=== PATIENT | female | born 1955 | race Caucasian/White ===

== ENCOUNTER 2018-02-27 08:32 | Outpatient (CLI) | payer OTHER | END 2018-02-27 08:33 | disposition home or self-care (01) | LOC: LAB.F 08:32 | PROVIDERS: ATTEND Optometrist | DX: R51 Headache (principal) | CPT/HCPCS: 36415; 85651; 86140 ==

== ENCOUNTER 2019-09-03 16:54 | Inpatient (IN) | payer MEDICARE, OTHER ==
--- NOTE | 2019-09-03 17:25 | ED Physician Documentation ---
PD HPI ABD PAIN - Stated complaint Stated Complaint: RT SIDE PX - Chief complaint Chief Complaint: Abd Pain - History obtained from History obtained from: Patient - History of Present Illness Timing - onset: Today (The patient states she awoke this morning with right lower quadrant abdominal pain that is crampy and localized and has continued through the day. Shortly after awakening she did have 3 or 4 episodes of soft stool bowel movement but not diarrhea per se and subsequently no further bowel movements through the day. She denied any dysuria. The abdominal pain has remained localized in the right lower quadrant and has continued and worsened through the afternoon. She is feeling nauseated and without any appetite and has not eaten through the day. She has not had any prior similar episodes. She felt chilled this afternoon but no noted fevers per se.) Timing - duration: Days (1) Timing - details: Gradual onset, Still present Quality: Cramping, Aching, Pain Location: RLQ Radiation: No: Chest, Lower back, Right flank Improved by: Laying still. No: Position Worsened by: Moving, Palpation, Other (She did have considerable discomfort with any bumps or jostles on the ride here.) Associated symptoms: Nausea, Loss of appetite. No: Fever, Vomiting, Diarrhea (but 3-4 small loose stools this morning), Dysuria, Hematuria, Chest pain Similar symptoms before: Has not had sx before Recently seen: Not recently seen Review of Systems Constitutional: reports: Chills. denies: Fever, Myalgias Nose: denies: Rhinorrhea / runny nose, Congestion Throat: denies: Sore throat Respiratory: denies: Cough GI: reports: Abdominal Pain, Nausea. 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 Living Arrangement: reports: At home - Social History Does the pt smoke?: No Does the pt drink ETOH?: No Does the pt have substance abuse?: No PD ED PE NORMAL - Vitals Vital signs reviewed: Yes - General General: Alert and oriented X 3, Well developed/nourished, Other (She appears quite uncomfortable and is guardedly holding still due to pain in the right abdomen.) - HEENT HEENT: Pharynx benign. No: Moist mucous membranes - Neck Neck: Supple, no meningeal sign, No adenopathy - Cardiac Cardiac: RRR, No murmur - Respiratory Respiratory: Clear bilaterally - Abdomen Abdomen: Soft, Non distended, No organomegaly, Other (She has marked tenderness localized to the right lower quadrant at McBurney's point with localized guarding and localized percussion tenderness. She has referred tenderness from palpation in the mid abdomen and left abdomen referring to the right lower quadrant. She has rebound tenderness. She does have pain with heel strike and leg lift all to the right lower quadrant. There is no CVA tenderness. There is no hernias nor masses noted in the inguinal area.). No: Normal bowel sounds (diminished) - Female Female : Deferred - Rectal Rectal: Deferred - Back Back: No CVA TTP - Derm Derm: Normal color, No rash - Extremities Extremities: No deformity, No tenderness to palpate, Normal ROM s pain, No edema, No calf tenderness / cord - Neuro Neuro: Alert and oriented X 3, No motor deficit, Normal speech Results - Vitals Vitals: Vital Signs - 24 hr 09/03/19 09/03/19 16:59 19:00 Temperature 37.1 C Heart Rate 70 81 Respiratory 16 14 Rate Blood Pressure 125/72 119/72 O2 Saturation 99 100 Oxygen O2 Source Nasal cannula - Labs Labs: Laboratory Tests 09/03/19 09/03/19 09/03/19 17:15 17:20 17:20 WBC 4.9 RBC 4.97 Hgb 15.5 Hct 45.3 MCV 91.1 MCH 31.2 H MCHC 34.2 RDW 13.4 Plt Count 181 MPV 10.7 Neut # (Auto) 2.0 Lymph # (Auto) 2.3 [place] # (Auto) 0.4 Eos # (Auto) 0.1 Baso # (Auto) 0.0 Absolute Nucleated RBC 0.00 Nucleated RBC % 0.0 Sodium 138 Potassium 3.3 L Chloride 101 Carbon Dioxide 29 Anion Gap 8.0 BUN 20 Creatinine 0.8 Estimated GFR (MDRD) 72 L Glucose 97 Calcium 9.3 Total Bilirubin 1.0 AST 22 ALT 18 Alkaline Phosphatase 61 Total Protein 7.4 Albumin 4.6 Globulin 2.8 Albumin/Globulin Ratio 1.6 Lipase 39 Urine Color YELLOW Urine Clarity CLEAR Urine pH 6.0 Ur Specific [place] 1.015 Urine Protein NEGATIVE Urine Glucose (UA) NEGATIVE Urine Ketones TRACE Urine Occult Blood NEGATIVE Urine Nitrite NEGATIVE Urine Bilirubin NEGATIVE Urine Urobilinogen 0.2 (NORMAL) Ur Leukocyte Esterase NEGATIVE Ur Microscopic Review NOT INDICATED Urine Culture Comments NOT INDICATED - Rads (name of study) abd CT Radiology: Prelim report reviewed (Retrocecal appendix appears normal. Diverticuli without any diverticulitis. Right ovary is not visible and status post hysterectomy. No hydronephrosis nor ureteral blockages identified. No acute explanation for her pain.), See rad report PD MEDICAL DECISION MAKING - ED course Complexity details: re-evaluated patient (Reevaluation is still quite tender in the right lower quadrant with peritoneal signs on exam. She did require further dosing of medication for the pain and nausea. At this point her exam is very suggestive of significant process and I feel she needs further evaluation and treatment for this.), considered differential (Her progression of symptoms and exam are most consistent with appendicitis. Alternatives would be a right sided diverticulitis or a ovarian process. Other alternatives would be your urinary tract infection or stone. However given her peritoneal findings of percussion and rebound and referred tenderness, most likely to think of a localized intra- abdominal infection or inflammatory process. CT scan is indicated as is other lab tests. We will give her IV fluids and medications. She is quite painful in the process and very tender on exam so we will give her some pain medications as well as antiemetics and fluids.), d/w patient, d/w product support consultant (I talked with Dr. Bhardwaj who is on-call for surgery who felt that the patient would not be appropriate on her service given no clear surgical process. I will talk with the hospitalist regarding further evaluation of the unknown cause of pain with intractable tenderness and pain.) Departure - Departure Disposition: ED Place in Observation Clinical Impression: Acute abdominal pain in right lower quadrant, Intractable abdominal pain Condition: Stable Record reviewed to determine appropriate education?: Yes
[2019-09-03 17:30] LABS: BASOPHILS % (AUTO) 0.6 %; EOSINOPHILS # (AUTO) 0.1 10^3/uL (0.0-0.7); EOSINOPHILS % (AUTO) 2.2 %; HGB - HEMOGLOBIN 15.5 g/dL (12.0-16.0); LYMPHOCYTES # (AUTO) 2.3 10^3/uL (1.5-3.5); LYMPHOCYTES % (AUTO) 47.8 %; MEAN CORPUSCULAR HEMOGLOBIN 31.2 pg (27.0-31.0); MEAN CORPUSCULAR HGB CONC 34.2 g/dL (32.0-36.0); MEAN CORPUSCULAR VOLUME 91.1 fL (81.0-99.0); MEAN PLATELET VOLUME 10.7 fL (7.9-10.8); MONOCYTES # (AUTO) 0.4 10^3/uL (0.0-1.0); MONOCYTES % (AUTO) 7.6 %; NEUTROPHILS % (AUTO) 41.6 %; PLT - PLATELET COUNT 181 10^3/uL (130-450); RED BLOOD COUNT 4.97 10^6/uL (4.20-5.40); RED CELL DISTRIBUTION WIDTH 13.4 % (12.0-15.0); WHITE BLOOD COUNT 4.9 x10^3/uL (4.8-10.8)
[2019-09-03 17:32] LABS: BILIRUBIN,URINE NEGATIVE (NEGATIVE); CLARITY,URINE CLEAR (CLEAR); GLUCOSE, URINE (UA) NEGATIVE (NEGATIVE); KETONES,URINE (UA) TRACE mg/dL (NEGATIVE); LEUKOCYTE ESTERASE, URINE NEGATIVE (NEGATIVE); NITRITE,URINE NEGATIVE (NEGATIVE); OCCULT BLOOD,URINE NEGATIVE (NEGATIVE); PROTEIN,URINE NEGATIVE (NEGATIVE); UROBILINOGEN,URINE 0.2 (NORMAL) E.U./dL (NORMAL)
[2019-09-03] MEDS ORDERED: diphenhydrAMINE INJ 50 MG/ML VIAL IVP STA (17:41)
[2019-09-03] MEDS ORDERED: SODIUM CHLORIDE 0.9% 1,000 ML IV ONE ×2 (17:41→19:19)
[2019-09-03] MEDS ORDERED: ONDANSETRON 4 MG/2 ML VIAL IVP STA (17:41)
[2019-09-03 17:42] LABS: ALBUMIN 4.6 g/dL (3.2-5.5); ALBUMIN/GLOBULIN RATIO 1.6 (1.0-2.2); CALCIUM 9.3 mg/dL (8.5-10.3); CREATININE 0.8 mg/dL (0.4-1.0); TOTAL PROTEIN 7.4 g/dL (6.7-8.2)
[2019-09-03] MEDS ORDERED: HYDROmorphone 1 MG/ML CARPUJECT IVP STA ×2 (17:42→19:18)
[2019-09-03] MEDS ORDERED: IOVERSOL 320 100 ML VIAL IVP ONE ×2 (17:51→18:13)
--- NOTE | 2019-09-03 18:40 | CT Report ---
Reason: RLQ pain/tender since AM Procedure Date: 09/03/2019 Accession Number: [id number] / [id number] Procedure: CT - Abdomen/Pelvis W CPT Code: Final Report FULL RESULT: EXAM: CT ABDOMEN AND PELVIS EXAM DATE: 09/03/2019 06:12 PM. CLINICAL HISTORY: RLQ pain/tender since AM. COMPARISONS: None. TECHNIQUE: Routine helical CT imaging was performed through the abdomen and pelvis. IV contrast: 100 cc OPTIRAY 320. Enteric contrast: No. Reconstructions: Coronal and sagittal. In accordance with CT protocol optimization, one or more of the following dose reduction techniques were utilized for this exam: automated exposure control, adjustment of mA and/or KV based on patient size, or use of iterative reconstructive technique. FINDINGS: Lung Bases: Mild wispy atelectasis or scarring inferiorly in the right middle lobe. Liver: Normal. No masses. Gallbladder/Bile Ducts: Unremarkable. Spleen: Normal. Pancreas: Normal. Adrenal Glands: Normal. Kidneys: There are a few parapelvic cysts in the mid to lower left kidney. No convincing hydronephrosis. Otherwise unremarkable. Peritoneal Cavity/Bowel: Unopacified stomach and small bowel are nondistended. The retrocecal appendix is normal. There is a small amount of formed stool in the colon. There is minimal descending and sigmoid colon diverticulosis. There is no focal pericolonic fat stranding. There is no lymphadenopathy, ascites, or pneumoperitoneum. Pelvic Organs: Small volume bladder. Uterus surgically absent. Left ovary is unremarkable. Right ovary is either small or absent. Vasculature: No aneurysms or other significant abnormality. Bones: No significant abnormality. Other: Body wall is unremarkable. IMPRESSION: Normal abdomen and pelvis CT. No findings identified to explain right lower quadrant pain. RADIA
[2019-09-03] MEDS ORDERED: ONDANSETRON 4 MG/2 ML VIAL IVP PRN (19:28)
--- NOTE | 2019-09-03 19:34 | HISTORY & PHYSICAL EXAMINATION ---
Chief Complaint - Chief Complaint Chief Complaint: right lower quadrant abdominal pain History of Present Illness - Admitted From Admitted From:: [facility] ED - History Obtained From Records Reviewed: yes History obtained from: patient Exam Limitations: none - History of Present Illness HPI Comment/Other: Patient is a 63-year-old female who presented to the ED with right lower quadrant abdominal pain which started this morning. This was shortly after having a small bowl of cereal. She immediately had an urgency to empty her bowels and had 4 loose bowel movements shortly afterwards. She has been experiencing heartburn which started 6 days ago following 3 days of eating lasagna which contained a significant amount of cheese. 3 days ago she did not feel well and laid around most of the following day. Yesterday she had a bowl of Robe gray soup and experienced some abdominal pain afterwards. Throughout the episode she has not vomited but she has been nauseous. She denies chest pain or dyspnea. She denied fever but has been having chills. She reports waking up drenched in sweat on Monday night which was 3 days ago. Work-up in the ED included a CT of the abdomen pelvis, CBC and BMP which were largely unremarkable except for a potassium of 3.3. However the patient's abdominal pain persist despite 2 doses of IV Dilaudid. She is still very tender in the right lower quadrant and the thought of food makes her significantly nauseous. 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 Social History Notes: She does not use tobacco products. She drinks a glass of wine daily. She denies illicit drug use. - POLST Patient has POLST: No POLST Status: Full Code Meds/Allgy - Allergies Allergies/Adverse Reactions: Allergies Allergy/AdvReac Type Severity Reaction Status Date / Time morphine Allergy Itching Verified 09/03/19 16:59 Review of Systems - Constitutional Constitutional: reports: Chills. denies: Fatigue, Fever - Eyes Eyes: denies: Pain, Vision loss, Dipolpia - Ears, Nose & Throat Ears, Nose & Throat: denies: Vertigo, Sore throat - Cardiovascular Cariovascular: denies: Irregular heart rate, Palpitations, Chest pain, Edema, Lightheadedness, Syncope, Exertional dyspnea - Respiratory Respiratory: denies: Cough, Wheezing, SOB at rest, SOB with exertion - Gastrointestinal Gastrointestinal: reports: Abdominal pain, Diarrhea (loose stools), Nausea, Re flux/heartburn. denies: Black stools, Vomiting, Coffee grounds emesis - Genitourinary Genitourinary: denies: Dysuria, Frequency, Urgency, Hematuria, Incontinence - Musculoskeletal Musculoskeletal: denies: Muscle pain, Back pain, Muscle aches - Integumentary Integumentary: denies: Rash, Pruritis - Neurological Neurological: denies: General weakness, Focal weakness, Headache, Dizziness - Psychiatric Psychiatric: denies: Depression, Anxiety - Endocrine Endocrine: denies: Polyuria, Polydypsia - Hematologic/Lymphatic Hematologic/Lymphatic: denies: Anemia, Bruising, Petechiae Prior Level of Functionality: Patient is independent of activities of daily living Exam - Vital Signs Vital Signs: Vital Signs x48h Temp Pulse Resp BP Pulse Ox 09/03/19 19:00 81 14 119/72 100 09/03/19 16:59 37.1 C 70 16 125/72 99 - Physical Exam General Appearance: positive: Alert, Moderate distress, Severe distress Eyes Bilateral: positive: PERRL, EOMI ENT: positive: Dry mucous membranes Neck: positive: No JVD, Trachea midline Respiratory: positive: Chest non-tender, No respiratory distress, Breath sounds nml. negative: Wheezes, Rales, Rhonchi Cardiovascular: positive: Regular rate & rhythm, No murmur Abdomen: positive: Nml bowel sounds, Tenderness (right lower quadrant), Guarding, Rebound Back: positive: Nml inspection Skin: positive: Color nml, No rash, Warm, Dry Extremities: positive: Non-tender, Full ROM, Nml appearance, No pedal edema Neurologic/Psychiatric: positive: Oriented x3, CN's nml (2-12), Motor nml, Sensation nml, Mood/affect nml Conclusion/Plan - Problem List (1) Intractable abdominal pain Conclusion/Plan: Etiology undetermined CT scan of the abdomen pelvis was unremarkable. IV hydration with normal saline at 125 mils per hour. Pain management with Dilaudid 0.5 mg IV every 2 hours as needed. [place] 5/325. 1 tablet every 4 hours as needed If patient's pain worsens or does not improve we will consult general surgery (2) Hypokalemia Conclusion/Plan: Will replace and recheck. We will also check magnesium level - Lab Results Fish Bones: 09/03/19 17:20 09/03/19 17:20 Core Measures - Anticipated LOS I expect patient to be DC'd or transferred within 96 hours.: Yes - DVT/VTE - Prophylaxis VTE/DVT Device ordered at admit?: Yes VTE/DVT Prophylaxis med ordered at admit?: Yes
[2019-09-03] MEDS: HYDROmorphone 0.5 MG/0.5 ML SYRINGE IVP PRN (21:54)
[2019-09-03] MEDS: POTASSIUM CHLOR 10 MEQ/100 ML 10 MEQ/100 ML BAG IV SCH (23:03)
[2019-09-04] MEDS: POTASSIUM CHLOR 10 MEQ/100 ML 10 MEQ/100 ML BAG IV SCH ×3 (00:07→02:19)
[2019-09-04] MEDS: SODIUM CHLORIDE 0.9% 1,000 ML IV SCH ×4 (00:07→21:35)
[2019-09-04] MEDS: SODIUM CHLORIDE FLUSH 0.9% 10 ML SYRINGE IVP SCH ×4 (02:28→23:57)
[2019-09-04] MEDS: HYDROmorphone 0.5 MG/0.5 ML SYRINGE IVP PRN (04:14)
[2019-09-04 05:25] LABS: BASOPHILS % (AUTO) 0.6 %; EOSINOPHILS # (AUTO) 0.1 10^3/uL (0.0-0.7); EOSINOPHILS % (AUTO) 1.2 %; HGB - HEMOGLOBIN 13.1 g/dL (12.0-16.0); LYMPHOCYTES # (AUTO) 1.8 10^3/uL (1.5-3.5); LYMPHOCYTES % (AUTO) 35.7 %; MEAN CORPUSCULAR HEMOGLOBIN 31.4 pg (27.0-31.0); MEAN CORPUSCULAR HGB CONC 33.5 g/dL (32.0-36.0); MEAN CORPUSCULAR VOLUME 93.8 fL (81.0-99.0); MEAN PLATELET VOLUME 11.1 fL (7.9-10.8); MONOCYTES # (AUTO) 0.4 10^3/uL (0.0-1.0); MONOCYTES % (AUTO) 7.8 %; NEUTROPHILS # (AUTO) 2.7 10^3/uL (1.5-6.6); NEUTROPHILS % (AUTO) 54.5 %; PLT - PLATELET COUNT 156 10^3/uL (130-450); RED BLOOD COUNT 4.17 10^6/uL (4.20-5.40); RED CELL DISTRIBUTION WIDTH 13.8 % (12.0-15.0)
[2019-09-04 05:33] LABS: CALCIUM 8.1 mg/dL (8.5-10.3); CREATININE 0.8 mg/dL (0.4-1.0); MAGNESIUM 2.2 mg/dL (1.7-2.8)
[2019-09-04] MEDS: SODIUM CHLORIDE FLUSH 0.9% 10 ML SYRINGE IVP PRN (06:39)
[2019-09-04] MEDS: PANTOPRAZOLE 40 MG VIAL IVP SCH (06:39)
[2019-09-04] MEDS ORDERED: SODIUM CHLORIDE 0.9% 500 ML IV ONE ×2 (07:26→12:01)
[2019-09-04] MEDS ORDERED: GI COCKTAIL 120 ML BOTTLE PO PRN (07:54)
[2019-09-04] MEDS ORDERED: ACETAMINOPHEN 325 MG TABLET PO PRN (08:50)
[2019-09-04] MEDS: HYDROcod/ACETAM 5/325 MG TABLET PO PRN ×2 (09:05→16:57)
[2019-09-04] MEDS: ENOXAPARIN 40 MG/0.4 ML SYRINGE SUBQ SCH (09:05)
[2019-09-04] MEDS ORDERED: SODIUM CHLORIDE 0.9% 1,000 ML IV SCH (09:16)
--- NOTE | 2019-09-04 10:16 | PHARMACY PROGRESS NOTE ---
- Best Possible Medication History Admit Date and Time: 09/03/191949 Processed by: Pharmacy Medication History completed: Yes Patient Interview: Pt interview ONLY source As the person ultimately responsible for medication therapy, providers are able to order a medication from an existing home medication list in [facility] via the "Reconcile Routine" prior to Confirmation of that medication by patient support partner. Such practice is discouraged except when the physician, in their clinical judgment, deems that a medical need exists for a medication without regard to previous use.
--- NOTE | 2019-09-04 12:08 | PROVIDER PROGRESS NOTE ---
Subjective - Prog Note Date Prog Note Date: 09/04/19 - Subjective Pt reports feeling: No change Subjective: pt is alert and oriented today. pt still report right upper quadrant pain with positive on vidal's sign by examination although CT of abdomen was u nremarkable. pt also complain of headache as her chronic migraines. pt denies fever, chill, chest pain, shortness of breath. pt was also found to have hypotension in the morning. Current Medications - Current Medications Current Medications: Active Medications Acetaminophen (Tylenol) 650 mg PO Q4HR PRN PRN Reason: Pain or Fever > 38C (100.4F) Hydrocodone Bitart/Acetaminophen ([place] 5/325) 1 tab PO Q4HR PRN PRN Reason: Pain 5 to 7 Last Admin: 09/04/19 09:05 Dose: 1 tab Enoxaparin Sodium (Lovenox) 40 mg SUBQ DAILY [facility] Last Admin: 09/04/19 09:05 Dose: 40 mg Hydromorphone HCl (Dilaudid Inj Syringe) 0.5 mg IVP Q2H PRN PRN Reason: Pain 8 to 10 Last Admin: 09/04/19 04:14 Dose: 0.5 mg Sodium Chloride (Normal Saline 0.9%) 1,000 mls @ 100 mls/hr IV .Q10H [facility] Last Admin: 09/04/19 11:47 Dose: 100 mls/hr Sodium Chloride (Normal Saline 0.9%) 500 mls @ 999 mls/hr IV ONCE ONE Stop: 09/04/19 12:31 Midodrine () 2.5 mg PO TIDWM [facility] Multi-Ingredient Mouthwash/Gargle () 30 ml PO Q4H PRN PRN Reason: Abdominal Pain Ondansetron HCl (Zofran Inj) 4 mg IVP Q4HR PRN PRN Reason: Nausea / Vomiting Pantoprazole Sodium (Protonix) 40 mg IVP QDAC [facility] Last Admin: 09/04/19 06:39 Dose: 40 mg Sodium Chloride (Normal Saline Flush 0.9%) 10 ml IVP PRN PRN PRN Reason: NEEDED PER PROVIDER ORDERS Last Admin: 09/04/19 06:39 Dose: 10 ml Sodium Chloride (Normal Saline Flush 0.9%) 10 ml IVP 0100,0900,1700 [facility] Last Admin: 09/04/19 09:05 Dose: 10 ml No Known Home Medications 09/04/19 Objective - Vital Signs/Intake & Output Vital Signs: Vital Signs x48h Temp Pulse Resp BP Pulse Ox 09/04/19 09:00 36.7 C 81 19 90/57 L 93 09/04/19 05:00 37.0 C 80 18 89/54 L 93 Intake & Output: Intake & Output 09/01/19 09/02/19 09/03/19 09/04/19 23:59 23:59 23:59 23:59 Intake Total 0511.055 8310.500 Balance 4536.956 3122.500 - Objective General Appearance: positive: No acute distress, Mild distress. negative: Lethargic Eyes Bilateral: positive: Normal inspection, PERRL, No lid inflammation ENT: positive: ENT inspection nml, No signs of dehydration. negative: Purulent nasal drainage Neck: positive: Nml inspection, Thyroid nml, No JVD, Trachea midline. negative: Thyromegaly, Stiff neck, Tracheal deviation Respiratory: positive: Chest non-tender, No respiratory distress, Breath sounds nml. negative: Wheezes, Rales, Rhonchi Cardiovascular: positive: Regular rate & rhythm, No murmur. negative: Irregularly irregular, Tachycardia, Bradycardia, Systolic murmur, Diastolic murmur Peripheral Pulses: 2+ Radial (R), 2+ Radial (L), 2+ Dorsalis pedis (R), 2+ Dorsalis pedis (L) Abdomen: positive: No organomegaly, Nml bowel sounds, No distention, Other (positive Vidal's sign). negative: Guarding, Rebound Back: positive: Nml inspection. negative: CVA tenderness (R), CVA tenderness (L) Skin: positive: Color nml, No rash, Warm, Dry. negative: Cyanosis, Diaphoresis, Pallor Extremities: positive: Non-tender, Full ROM, Nml appearance. negative: Calf tenderness, Elizabeth's sign/cords Neurologic/Psychiatric: positive: Oriented x3, Motor nml, Sensation nml, Mood/affect nml. negative: Weakness, Sensory loss, Facial droop, Slurred/abnml speech - Lab Results Fish Bones: 09/04/19 04:35 09/04/19 04:35 Other Labs: Lab Results x24hrs 09/04/19 09/04/19 09/03/19 Range/Units 04:35 04:35 17:20 WBC 5.0 (4.8-10.8) x10^3/uL RBC 4.17 L (4.20-5.40) 10^6/uL Hgb 13.1 (12.0-16.0) g/dL Hct 39.1 (37.0-47.0) % MCV 93.8 (81.0-99.0) fL MCH 31.4 H (27.0-31.0) pg MCHC 33.5 (32.0-36.0) g/dL RDW 13.8 (12.0-15.0) % Plt Count 156 (130-450) 10^3/uL MPV 11.1 H (7.9-10.8) fL Neut # (Auto) 2.7 (1.5-6.6) 10^3/uL Lymph # (Auto) 1.8 (1.5-3.5) 10^3/uL [place] # (Auto) 0.4 (0.0-1.0) 10^3/uL Eos # (Auto) 0.1 (0.0-0.7) 10^3/uL Baso # (Auto) 0.0 (0.0-0.1) 10^3/uL Absolute Nucleated RBC 0.00 x10^3/uL Nucleated RBC % 0.0 /100WBC Sodium 140 138 (135-145) mmol/L Potassium 4.3 3.3 L (3.5-5.0) mmol/L Chloride 110 101 (101-111) mmol/L Carbon Dioxide 26 29 (21-32) mmol/L Anion Gap 4.0 L 8.0 (6-13) BUN 15 20 (6-20) mg/dL Creatinine 0.8 0.8 (0.4-1.0) mg/dL Estimated GFR (MDRD) 72 L 72 L (>89) Glucose 101 H 97 (70-100) mg/dL Calcium 8.1 L 9.3 (8.5-10.3) mg/dL Magnesium 2.2 (1.7-2.8) mg/dL Total Bilirubin 1.0 (0.2-1.0) mg/dL AST 22 (10-42) IU/L ALT 18 (10-60) IU/L Alkaline Phosphatase 61 (42-121) IU/L Total Protein 7.4 (6.7-8.2) g/dL Albumin 4.6 (3.2-5.5) g/dL Globulin 2.8 (2.1-4.2) g/dL Albumin/Globulin Ratio 1.6 (1.0-2.2) Lipase 39 (22-51) U/L Urine Color Urine Clarity (CLEAR) Urine pH (5.0-7.5) PH Ur Specific [place] (1.002-1.030) Urine Protein (NEGATIVE) mg/dL Urine Glucose (UA) (NEGATIVE) mg/dL Urine Ketones (NEGATIVE) mg/dL Urine Occult Blood (NEGATIVE) Urine Nitrite (NEGATIVE) Urine Bilirubin (NEGATIVE) Urine Urobilinogen (NORMAL) E.U./dL Ur Leukocyte Esterase (NEGATIVE) Ur Microscopic Review Urine Culture Comments 09/03/19 09/03/19 Range/Units 17:20 17:15 WBC 4.9 (4.8-10.8) x10^3/uL RBC 4.97 (4.20-5.40) 10^6/uL Hgb 15.5 (12.0-16.0) g/dL Hct 45.3 (37.0-47.0) % MCV 91.1 (81.0-99.0) fL MCH 31.2 H (27.0-31.0) pg MCHC 34.2 (32.0-36.0) g/dL RDW 13.4 (12.0-15.0) % Plt Count 181 (130-450) 10^3/uL MPV 10.7 (7.9-10.8) fL Neut # (Auto) 2.0 (1.5-6.6) 10^3/uL Lymph # (Auto) 2.3 (1.5-3.5) 10^3/uL [place] # (Auto) 0.4 (0.0-1.0) 10^3/uL Eos # (Auto) 0.1 (0.0-0.7) 10^3/uL Baso # (Auto) 0.0 (0.0-0.1) 10^3/uL Absolute Nucleated RBC 0.00 x10^3/uL Nucleated RBC % 0.0 /100WBC Sodium (135-145) mmol/L Potassium (3.5-5.0) mmol/L Chloride (101-111) mmol/L Carbon Dioxide (21-32) mmol/L Anion Gap (6-13) BUN (6-20) mg/dL Creatinine (0.4-1.0) mg/dL Estimated GFR (MDRD) (>89) Glucose (70-100) mg/dL Calcium (8.5-10.3) mg/dL Magnesium (1.7-2.8) mg/dL Total Bilirubin (0.2-1.0) mg/dL AST (10-42) IU/L ALT (10-60) IU/L Alkaline Phosphatase (42-121) IU/L Total Protein (6.7-8.2) g/dL Albumin (3.2-5.5) g/dL Globulin (2.1-4.2) g/dL Albumin/Globulin Ratio (1.0-2.2) Lipase (22-51) U/L Urine Color YELLOW Urine Clarity CLEAR (CLEAR) Urine pH 6.0 (5.0-7.5) PH Ur Specific [place] 1.015 (1.002-1.030) Urine Protein NEGATIVE (NEGATIVE) mg/dL Urine Glucose (UA) NEGATIVE (NEGATIVE) mg/dL Urine Ketones TRACE (NEGATIVE) mg/dL Urine Occult Blood NEGATIVE (NEGATIVE) Urine Nitrite NEGATIVE (NEGATIVE) Urine Bilirubin NEGATIVE (NEGATIVE) Urine Urobilinogen 0.2 (NORMAL) (NORMAL) E.U./dL Ur Leukocyte Esterase NEGATIVE (NEGATIVE) Ur Microscopic Review NOT INDICATED Urine Culture Comments NOT INDICATED ABX Reporting Has patient been on IV antibiotics over the past 48 hours?: No Assessment/Plan - Problem List (1) Hypotension Impression: Pt present lower BP at 83/46. pt has normal WBC, no fever, no SOB. pt denies chest pain, and she report she feel fine. pt report her SBP usually was at around 100. Undetermined etiology. Plan: perfusion and hydration with bolus of NS, Midodrine, check pt's troponin and lactic acid, check corticol. 2) Intractable abdominal pain Conclusion/Plan: pt complain of right upper quadrant pain. vidal's sign is positive. But CT scan of the abdomen pelvis was unremarkable. Etiology undetermined. plan: order US of abdomen, continue pain control. clear diet for bowel rest now, will advance diet as tolerated. (3) Hypokalemia Conclusion/Plan: resolved
[2019-09-04] MEDS: MIDODRINE 2.5 MG TABLET PO SCH ×2 (12:18→18:29)
--- NOTE | 2019-09-04 18:53 | CT Report ---
Reason: RIGHT SIDE SEVERE HEADACHE Procedure Date: 09/04/2019 Accession Number: [id number] / [id number] Procedure: CT - HEAD WO CPT Code: Final Report FULL RESULT: EXAM: CT HEAD EXAM DATE: 09/04/2019 06:02 PM. CLINICAL HISTORY: RIGHT SIDE SEVERE HEADACHE. COMPARISON: None. TECHNIQUE: Multiaxial CT images were obtained from the foramen magnum to the vertex. Reformats: Sagittal and coronal. IV contrast: None. In accordance with CT protocol optimization, one or more of the following dose reduction techniques were utilized for this exam: automated exposure control, adjustment of mA and/or KV based on patient size, or use of iterative reconstructive technique. FINDINGS: Parenchyma: No intraparenchymal hemorrhage. No evidence of mass, midline shift, or CT findings of infarction. Davis-white differentiation is distinct. Extraaxial Spaces: Normal for age. No subdural or epidural collections identified. Ventricles: Normal in size and position. Sinuses and Orbits: Imaged paranasal sinuses, orbits, and mastoids show no significant abnormality. Bones: No evidence of fracture or calvarial defect. Other: None. IMPRESSION: No acute intracranial abnormalities. RADIA
[2019-09-05] MEDS: BUTALB/ACETAM/CAFF 50/325/40MG TABLET PO PRN ×2 (00:20→05:04)
[2019-09-05 00:34] LABS: MUDS CUTOFF CONCENTRATIONS CUTOFF CONC BELOW:
[2019-09-05 00:46] LABS: AMPHETAMINE SCREEN,URINE NEGATIVE (NEGATIVE); BENZODIAZEPINES SCREEN, URINE NEGATIVE (NEGATIVE); COCAINE SCREEN URINE NEGATIVE (NEGATIVE); METHADONE SCREEN, URINE NEGATIVE (NEGATIVE); METHAMPHETAMINES SCREEN, URINE NEGATIVE (NEGATIVE); OPIATE SCREEN, URINE POSITIVE (NEGATIVE); OXYCODONE SCREEN, URINE NEGATIVE (NEGATIVE); PROPOXYPHENE SCREEN, URINE NEGATIVE (NEGATIVE); TRICYCLIC ANTIDEPRESSANT,URINE NEGATIVE (NEGATIVE)
--- NOTE | 2019-09-05 01:33 | Ultrasound Report ---
Reason: right upper quadran pain Procedure Date: 09/05/2019 Accession Number: [id number] / [id number] Procedure: US - Abdomen Limited CPT Code: Final Report FULL RESULT: EXAM: ABDOMEN ULTRASOUND LIMITED, RUQ EXAM DATE: 09/05/2019 12:54 AM. CLINICAL HISTORY: Right upper quadrant pain. COMPARISON: None. TECHNIQUE: Real-time scanning was performed with static images obtained. FINDINGS: Liver: Normal in echogenicity and diffusely increased size measuring 18.4 cm. Main portal vein flow: Hepatopetal. Gallbladder: Normal. No stones, wall thickening, or sonographic Vidal's sign. Biliary System: CBD measures 4.1 mm. No intrahepatic or extrahepatic ductal dilatation. Other: Normal appearance of the right kidney without hydronephrosis. Normal pancreatic head and body; tail obscured by overlying bowel gas. IMPRESSION: 1. Hepatomegaly. 2. Small amount of simple free fluid in the right upper quadrant. 3. No finding of cholelithiasis or cholecystitis. [facility]
[2019-09-05 05:08] LABS: BASOPHILS % (AUTO) 0.7 %; EOSINOPHILS # (AUTO) 0.1 10^3/uL (0.0-0.7); EOSINOPHILS % (AUTO) 1.9 %; HGB - HEMOGLOBIN 12.4 g/dL (12.0-16.0); LYMPHOCYTES # (AUTO) 1.8 10^3/uL (1.5-3.5); LYMPHOCYTES % (AUTO) 42.5 %; MEAN CORPUSCULAR HEMOGLOBIN 31.4 pg (27.0-31.0); MEAN CORPUSCULAR HGB CONC 33.2 g/dL (32.0-36.0); MEAN CORPUSCULAR VOLUME 94.4 fL (81.0-99.0); MEAN PLATELET VOLUME 10.8 fL (7.9-10.8); MONOCYTES # (AUTO) 0.3 10^3/uL (0.0-1.0); NEUTROPHILS % (AUTO) 47.7 %; PLT - PLATELET COUNT 133 10^3/uL (130-450); RED BLOOD COUNT 3.95 10^6/uL (4.20-5.40); RED CELL DISTRIBUTION WIDTH 13.7 % (12.0-15.0); WHITE BLOOD COUNT 4.2 x10^3/uL (4.8-10.8)
[2019-09-05 05:14] LABS: CALCIUM 7.7 mg/dL (8.5-10.3); CREATININE 0.7 mg/dL (0.4-1.0)
[2019-09-05] MEDS: PANTOPRAZOLE 40 MG VIAL IVP SCH (05:58)
[2019-09-05] MEDS: SODIUM CHLORIDE FLUSH 0.9% 10 ML SYRINGE IVP PRN (05:59)
[2019-09-05] MEDS ORDERED: SODIUM CHLORIDE 0.9% 1,000 ML IV SCH ×3 (07:10→08:00)
[2019-09-05] MEDS: MIDODRINE 2.5 MG TABLET PO SCH ×2 (07:40→12:06)
[2019-09-05] MEDS: SODIUM CHLORIDE FLUSH 0.9% 10 ML SYRINGE IVP SCH (08:51)
[2019-09-05] MEDS: ENOXAPARIN 40 MG/0.4 ML SYRINGE SUBQ SCH (08:51)
[2019-09-05] MEDS ORDERED: polyethylene glycoL 3350 17 GM PACKET PO SCH (09:00)
--- NOTE | 2019-09-05 13:03 | Discharge Plan ---
Discharge Plan Problem Reviewed?: Yes Disposition: Home, Self Care Condition: Stable Diet: Regular Activity Restrictions: Activity as Tolerated Shower Restrictions: No (fall precaution) Health Concerns: gastritis, dehydration Plan of Treatment: you feel much better. you have no more abdominal pain or nausea or vomiting. you tolerate regular diet. All your image studies are unremarkable. advise you continue Keep your health life style and hydration. Care Goals: stabilization and improvement/resolve of your medical conditions. Assessment: discussed with you the care plan, you understood. Additional Instructions or Follow Up instructions: You may followup your PCP in two weeks. Should your symptoms return or worsen, you may present ER or call 911 for help. No Smoking: If you smoke, Please STOP! Call for help.
--- NOTE | 2019-09-05 13:13 | DISCHARGE SUMMARY ---
Discharge Summary Admit Date: 09/03/19 Discharge Date: 09/05/19 Discharging Provider: Eulalio Wood Condition at Discharge: Stable Discharge Disposition: 01 Home, Self Care Discharge Facility Name: home - DIAGNOSES Admission Diagnoses: (1) Intractable abdominal pain (2) Hypokalemia Discharge Diagnoses with Status of Each Condition: (1) Hypotension resolved. it is likely caused by pt's significantly dehydration. pt report her BP usually is around 100. 2) Intractable abdominal pain resolved. pt report she did not have more abdominal pain. she tolerated and ate 100% of her lunch. It is likely caused by virus gastritis (3) Hypokalemia resolved (4)dehydration resolved. - HPI History of Present Illness: refer from Dr. Paez's HPI on 09/03/2019 Patient is a 63-year-old female who presented to the ED with right lower quadrant abdominal pain which started this morning. This was shortly after having a small bowl of cereal. She immediately had an urgency to empty her bowels and had 4 loose bowel movements shortly afterwards. She has been experiencing heartburn which started 6 days ago following 3 days of eating lasagna which contained a significant amount of cheese. 3 days ago she did not feel well and laid around most of the following day. Yesterday she had a bowl of Robe gray soup and experienced some abdominal pain afterwards. Throughout the episode she has not vomited but she has been nauseous. She denies chest pain or dyspnea. She denied fever but has been having chills. She reports waking up drenched in sweat on Monday night which was 3 days ago. Work-up in the ED included a CT of the abdomen pelvis, CBC and BMP which were largely unremarkable except for a potassium of 3.3. However the patient's abdominal pain persist despite 2 doses of IV Dilaudid. She is still very tender in the right lower quadrant and the thought of food makes her significantly nauseous. As a result she was admitted for further pain management and for closer monitoring to see if her symptoms progress further - HOSPITAL COURSE Hospital Course: pt was admitted for abdominal pain. CT of abdomen was unremarkable but pt continue to complain upper quadrant abdominal pain. US of abdomen reveals unremarkable. after pt has bowel rest, hydration, symptomatic control, pt's symptoms resolved. pt has no more abdominal pain, and she tolerate regular diet. The detail hospital course is as the below (1) Hypotension resolved. it is likely caused by pt's significantly dehydration. pt report her B P usually is around 100. 2) Intractable abdominal pain resolved. pt report she did not have more abdominal pain. she tolerated and ate 100% of her lunch. It is likely caused by virus gastritis (3) Hypokalemia resolved (4)dehydration resolved. - ALLERGIES Allergies/Adverse Reactions: Allergies Allergy/AdvReac Type Severity Reaction Status Date / Time morphine Allergy Itching Verified 09/03/19 16:59 - MEDICATIONS Home Medications: Ambulatory Orders Medication Instructions Recorded Confirmed No Known Home Medications 09/04/19 09/04/19 - PHYSICAL EXAM AT DISCHARGE General Appearance: positive: No acute distress, Alert. negative: Lethargic Eyes Bilateral: positive: Normal inspection, PERRL, EOMI, No lid inflammation ENT: positive: ENT inspection nml, Pharynx nml, No signs of dehydration. negative: Purulent nasal drainage Neck: positive: Nml inspection, Thyroid nml, No JVD, Trachea midline. negative: Thyromegaly, Lymphadenopathy (R), Lymphadenopathy (L), Stiff neck, Tracheal deviation Respiratory: positive: Chest non-tender, No respiratory distress, Breath sounds nml. negative: Wheezes, Rales, Rhonchi Cardiovascular: positive: Regular rate & rhythm, No murmur, No gallop. negative: Irregularly irregular, Tachycardia, Bradycardia, JVD present, Systolic murmur, Diastolic murmur Peripheral Pulses: positive: 2+ Abdomen: positive: Non-tender, No organomegaly, Nml bowel sounds, No distention. negative: Tenderness, Guarding, Rebound Back: positive: Nml inspection. negative: CVA tenderness (R), CVA tenderness (L) Skin: positive: Color nml, No rash, Warm, Dry. negative: Cyanosis, Diaphoresis, Pallor Extremities: positive: Non-tender, Full ROM, Nml appearance. negative: Calf tenderness, Elizabeth's sign/cords Neurologic/Psychiatric: positive: Oriented x3, Motor nml, Sensation nml. negat iram: Weakness, Sensory loss, Facial droop, Slurred/abnml speech, Depressed mood/affect - LABS Result Diagrams: 09/05/19 04:50 09/05/19 04:50 - FOLLOW UP Follow Up: you feel much better. you have no more abdominal pain or nausea or vomiting. you tolerate regular diet. All your image studies are unremarkable. advise you continue Keep your health life style and reduce fatty food intake, and keep hydration. You may followup your PCP in two weeks. Should your symptoms return or worsen, you may present ER or call 911 for help. - TIME SPENT Time Spent in Discharge (Minutes): 30
[2019-09-05 13:50] VITALS: BP 101/70
== END 2019-09-05 14:33 | disposition home or self-care (01) | DRG 392 ==
LOC: ED 16:54 → MS2 19:50 → OBSVTOIN 09-04 11:56
PROVIDERS: ADMIT Internal Medicine; ATTEND Nurse Practitioner Gerontology
DX: R10.31 Right lower quadrant pain (principal); E87.6 Hypokalemia; R51 Headache; A08.4 Viral intestinal infection, unspecified; I95.9 Hypotension, unspecified; E86.0 Dehydration
CPT/HCPCS: 36415; 70450; 74177; 76705; 80048; 80053; 81003; 82533; 83605; 83690; 83735; 84484; 85025; 96361; 96365; 96366; 96372; 96375; 96376; 99285; A9270; G0378; J1170; J1200; J1650; Q9967; 80306; 81001; 87086